=== PATIENT | female | born 1945 | race Caucasian/White ===

== ENCOUNTER 2016-12-20 10:43 | Day surgery (SDC) | payer BC ==
[~2016-12-20 10:43] MED LIST: ALLEGRA-D24 HOUR PO; ALLEGRA180 PO; B121000P IM; BENICAR HCT1 TAB PO; CALTRA600D PO; ESTRACE1 MG PO; FOLIC PO; HYDROCHLOROT25 MG PO; LIDODERM T; LIPITOR10 PO; LORTAB10 PO; MACROBID PO; MICARDIS HC1 PO; MICARDIS40 PO; NAP500 PO; NEUR100 PO; NEUR300 PO; NORCO1 TAB PO; NUVIGIL250 MG PO; P125 PO; PROTONIX PO; PROVIGIL2 PO; RECLAST IV; SKELAXIN8 PO; SLOW FE160 MG PO; SOLARAZE3 %/W TOP; TEG100B PO; TEGRETOL PO; TYSABRI IV; ULTRAM50 PO; VIT B12 IJ; VITAMIN D1000 UNI1 PO; [UNRECOGNIZED DRUG - OTHER]; [UNRECOGNIZED DRUG - OTHER] IM; [UNRECOGNIZED DRUG - OTHER] PO
== END 2016-12-20 18:21 | disposition home or self-care (01) ==
LOC: IMGHOLD 10:43 → RADHOLD 10:50 → SDC/OF 12:50
PROVIDERS: Psychiatry & Neurology Neurology
PROC: B030ZZZ Magnetic Resonance Imaging (MRI) of Brain (ICD-10-PCS; principal; 2016-12-20)
PROC: B03BZZZ Magnetic Resonance Imaging (MRI) of Spinal Cord (ICD-10-PCS; 2016-12-20)
DX: G37.9 Demyelinating disease of central nervous system, unspecified (principal); G37.1 Central demyelination of corpus callosum; G35 Multiple sclerosis; I69.954 Hemiplegia and hemiparesis following unspecified cerebrovascular disease affecting left non-dominant side; I10 Essential (primary) hypertension; G62.9 Polyneuropathy, unspecified; M81.0 Age-related osteoporosis without current pathological fracture; H91.92 Unspecified hearing loss, left ear; K21.9 Gastro-esophageal reflux disease without esophagitis; K86.89 Other specified diseases of pancreas; D64.9 Anemia, unspecified; D89.9 Disorder involving the immune mechanism, unspecified; Z98.1 Arthrodesis status; Z88.8 Allergy status to other drugs, medicaments and biological substances; Z91.040 Latex allergy status; Z91.048 Other nonmedicinal substance allergy status; Z79.818 Long term (current) use of other agents affecting estrogen receptors and estrogen levels; Z79.899 Other long term (current) drug therapy; Z96.1 Presence of intraocular lens; Z98.49 Cataract extraction status, unspecified eye; Z90.49 Acquired absence of other specified parts of digestive tract; Z90.710 Acquired absence of both cervix and uterus; Z92.21 Personal history of antineoplastic chemotherapy; Z98.82 Breast implant status; Z98.890 Other specified postprocedural states
CPT/HCPCS: 70553; 72156; 93005; A9577; J2250; J2710; J2930; J3010